=== PATIENT | male | born 1960 | race Two or more races ===

== ENCOUNTER 2025-02-12 08:07 | Emergency (ER) | payer BC ==
[~2025-02-12] VITALS: Ht 170.2 cm; Wt 77.1 kg
[2025-02-12] MEDS ORDERED: MORPHINE SULFATE INJ 4 MG/ML DISP.SYRIN ONE (08:33)
[2025-02-12] MEDS ORDERED: ONDANSETRON HCL/PF 4 MG/2 ML VIAL ONE (08:33)
[2025-02-12] MEDS: MORPHINE SULFATE INJ 2 MG/ML DISP.SYRIN IV ONE (08:41)
[2025-02-12] MEDS: IV NS 0.9% 500 ML BAG IV ONE (08:41)
[2025-02-12] MEDS: ONDANSETRON HCL/PF 4 MG/2 ML VIAL IVP ONE (08:42)
[2025-02-12 10:25] VITALS: BP 137/90; TEMP 98.5; O2SAT 97
== END 2025-02-12 10:25 | disposition home or self-care (01) ==
LOC: ER 08:22
DX: S13.4XXA Sprain of ligaments of cervical spine, initial encounter (principal); M54.50 Low back pain, unspecified; Z87.39 Personal history of other diseases of the musculoskeletal system and connective tissue; V43.62XA Car passenger injured in collision with other type car in traffic accident, initial encounter; Y93.89 Activity, other specified; Y92.488 Other paved roadways as the place of occurrence of the external cause; Y99.8 Other external cause status
CPT/HCPCS: 99285; 72125; 96374; 96375; 72131; J2270; J2405; J7040